=== PATIENT | male | born 1955 | race Caucasian/White ===

== ENCOUNTER 2016-12-24 11:15 | Emergency (ER) | payer BC ==
[2016-12-24 11:51] VITALS: BP 108/64; PULSE 83; TEMP 98.7; BMI 28.7
--- NOTE | 2016-12-24 12:23 | PDOC ---
Attending Attestation - Resident Resident Name: Tashi Wood - ED Attending Attestation I have performed the following: I have examined & evaluated the patient, The case was reviewed & discussed with the resident, I agree w/resident's findings & plan, Exceptions are as noted - HPI HPI: 12/24/16 12:10 61 yo M presents to the ER via EMS s/p fall while intoxicated He had 1/5 of vodka he can not tell me when He does not remember falling He awoke and had police all around him His wounds were dressed and he was brought to the ER - Physicial Exam PE: 12/24/16 12:23 Left eyebrow superficial laceration measuring approximately 2cm Left cheek abrasion No scalp laceration RRR Pt is awake and alert Speaking with clear sentences Ambulatory with ataxic gait - Medical Decision Making 12/24/16 12:[address] head, CT cervical spine Will give Boostrix Will continuously assess for sobriety
--- NOTE | 2016-12-24 12:41 | PDOC ---
History of Present Illness - General Chief Complaint: Alcohol intoxication Stated Complaint: FALL/INJURY Time Seen by Provider: 12/24/16 11:24 History Source: Patient Exam Limitations: Intoxication - History of Present Illness Initial Comments: 12/24/16 12:25 The patient is a 61M with a PMH of DM, hyperthyroidism, methadone addiction, HepC and cirrhosis who presents to the ED with acute intoxication and head wounds. He states that he was drinking tequila all day and states he drank a quart. He then passed out. He does not remember where he started or where he ended, just that he passed out, police surrounding him, and having his head wounds bandaged. ROS: + intoxication, abd distension, back pain, diarrhea. ROS - : pain in extremities, fever, chills, SOB, constipation, nausea, vomiting, abd pain. Meds: reba Todd Allergies: NDKA Social: Former smoker, quit 30 years ago. No recreational drugs, also quit 30 years ago. Drinks 1 fifth/day of vodka. Past History - Past Medical History Allergies/Adverse Reactions: Allergies Allergy/AdvReac Type Severity Reaction Status Date / Time No Known Allergies Allergy Verified 10/17/13 10:45 Home Medications: Ambulatory Orders Buprenorphine HCl/Naloxone HCl [Suboxone 4 mg-1 mg Sl Film] 50 mg PO DAILY 12/24 Diabetes: Yes Liver Disease: Yes (hep c) Psychiatric Problems: Yes (DEPERESSION) Thyroid Disease: Yes (HYPO) Other medical history: Cirrhosis of the Liver, Hepatitis-C - Psycho/Social/Smoking Cessation Hx Anxiety: Yes (deneis being suicidal or homicidal) Suicidal Ideation: No Smoking Status: No Smoking History: Former smoker Have you smoked in the past 12 months: No Number of Cigarettes Smoked Daily: 0 If you are a former smoker, when did you quit?: 23 YRS AGO Information on smoking cessation initiated: No Hx Alcohol Use: Yes Drug/Substance Use Hx: No (1 Quart of Vodka this morning) Substance Use Type: Prescribed Hx Substance Use Treatment: Yes Review of Systems - Review of Systems Able to Perform ROS?: Yes Is the patient limited Setswana proficient: No Constitutional: No: Chills, Fever Respiratory: No: Shortness of Breath Cardiac (ROS): No: Chest Pain ABD/GI: Yes: Diarrhea. No: Nausea, Vomiting, Other (Abd pain) *Physical Exam - Vital Signs Last Vital Signs Temp Pulse Resp BP Pulse Ox 98.7 F 83 20 108/64 95 12/24/16 11:38 12/24/16 11:38 12/24/16 11:38 12/24/16 11:38 12/24/16 11:38 - Physical Exam General Appearance: Yes: Intoxicated, Obese HEENT: positive: Other (1.5 cm abrasion on L eyebrow, 1 cm laceration on L cheek , dried blood on head) Respiratory/Chest: positive: Normal Breath Sounds Cardiovascular: positive: Regular Rhythm, Regular Rate, S1, S2 Gastrointestinal/Abdominal: positive: Soft, Distended. negative: Tenderness Integumentary: positive: Normal Color, Warm ED Treatment Course - LABORATORY CBC & Chemistry Diagram: 12/24/16 13:10 12/24/16 13:10 Medical Decision Making - Medical Decision Making 12/24/16 13:08 The patient is a 61M with a PMH of DM, hyperthyroidism, methadone addiction, HepC and cirrhosis who presents to the ED with acute intoxication and head wounds. Upon evaluation, his head wounds were cleaned but none required repair with sutures. Due to his history of alcoholic cirrhosis and hep C, we ordered a CBC, CMP, and coags to make sure there is no other underlying process going on. We also ordered imaging of his head, neck, abdomen, and pelvis. 12/24/16 16:58 Labs and radiology are all WNL. Pt was informed of this, was told he is ready for d/c, and will have his brother pick him up from the ED. *DC/Admit/Observation/Transfer Diagnosis at time of Disposition: Intoxication - Discharge Dispostion Disposition: HOME Condition at time of disposition: Stable Admit: No - Referrals Referrals: Osbaldo Caldwell MD [Primary Care Provider] - - Attestations Physician Attestion: 12/24/16 14:02 I, Dr. Tashi Wood, attest that this document has been prepared under my direction and personally reviewed by me in its entirety. I further attest, that it accurately reflects all work, treatment, procedures and medical decision -making performed by me. Addendum entered and electronically signed by Tashi Wood, MIN 12/24/16 17:43 : Progress Note - Progress Note Progress Note: Patient is ambulating with steady gait. He has gotten up to leave on multiple occasions. 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 Speech is clear and he knows where he lives for a cab to take him. Will be discharged.
[2016-12-24] MEDS ORDERED: BACITRACIN 0.9 GM PACKET ONE (12:43)
[2016-12-24 13:19] LABS: EOSINOPHIL 2.5 % (0-4.5); MCH 33.7 pg (25.7-33.7); MCHC 34.4 g/dl (32.0-35.9); MEAN PLT VOLUME 7.8 fl (7.5-11.1); NEUTROPHILS 63.8 % (42.8-82.8); PLATELET COUNT 70 K/MM3 (134-434); RDW 13.1 % (11.9-15.9)
[2016-12-24 13:48] LABS: INR 1.1 (0.82-1.09); PROTHROMBIN TIME (PATIENT) 12.1 SEC (9.98-11.88)
[2016-12-24 13:53] LABS: ALBUMIN 3.3 g/dl (3.4-5.0); ALK PHOS 80 U/L (45-117); ANION GAP 11 (8-16); BILIRUBIN,TOTAL 1.2 mg/dL (0.2-1.0); CALCIUM 8.3 mg/dL (8.5-10.1); CO2 24 mmol/L (21-32); GLUCOSE,RANDOM 90 mg/dL (74-106); SGOT/AST 59 U/L (15-37); SGPT/ALT 50 U/L (12-78); TOT PROT 6.7 g/dl (6.4-8.2)
== END 2016-12-24 17:08 | disposition home or self-care (01) ==
LOC: JER 11:15
DX: F10.120 Alcohol abuse with intoxication, uncomplicated (principal); S01.112A Laceration without foreign body of left eyelid and periocular area, initial encounter; S01.412A Laceration without foreign body of left cheek and temporomandibular area, initial encounter; W19.XXXA Unspecified fall, initial encounter; Y93.89 Activity, other specified; Y92.89 Other specified places as the place of occurrence of the external cause; E11.9 Type 2 diabetes mellitus without complications; K70.30 Alcoholic cirrhosis of liver without ascites; B19.20 Unspecified viral hepatitis C without hepatic coma; F11.20 Opioid dependence, uncomplicated
CPT/HCPCS: 36415; 70450-TC; 70486-TC; 72125-TC; 74177-TC; 80053; 85025; 85610; 99283-25

== ENCOUNTER 2017-02-15 09:13 | Day surgery (SDC) | payer BC ==
[2017-01-17 10:01] VITALS: BMI 39.9
[2017-02-15] MEDS ORDERED: PROPOFOL 20 ML ONE ×3 (10:38)
[2017-02-15 11:17] VITALS: TEMP 97.6
[2017-02-15 15:14] VITALS: BP 128/72; PULSE 63
--- NOTE | 2017-02-18 10:56 | PATH ---
Surgical Pathology Report Patient Name: PIA CORDOBA [facility]. Rec. #: [id number] /Age/Gender: 1955 (Age: 61) / M Account: [id number] Location: [facility]-ENDOSCOPY Taken: 02/15/2017 Received: 02/15/2017 Reported: 02/18/2017 Physicians: Osbaldo Caldwell M.D. Specimen(s) Received BX STOMACH Clinical History Hepatitis C, rule out varices Gastritis, no varices, erosive duodenitis, duodenal ulcer Final Diagnosis STOMACH, BIOPSY: GASTRIC MUCOSA WITH NO PATHOLOGIC CHANGES. IMMUNOSTAIN FOR H. PYLORI IS NEGATIVE. Electronically Signed German Haji M.D. Gross Description Received in formalin, labeled "biopsy stomach" are 2 ramirez, irregular portions of soft tissue measuring 0.2-0.5 cm. in greatest dimension. The specimens are submitted in toto in one cassette. [facility]/02/15/2017 [facility]/02/15/2017
== END 2017-02-15 12:05 | disposition home or self-care (01) ==
LOC: JASU-ENDO 09:13
PROVIDERS: ATTEND Internal Medicine Gastroenterology
PROC: 0DB98ZX Excision of Duodenum, Via Natural or Artificial Opening Endoscopic, Diagnostic (ICD-10-PCS; principal; 2017-02-15 10:30)
DX: B19.20 Unspecified viral hepatitis C without hepatic coma (principal); K26.9 Duodenal ulcer, unspecified as acute or chronic, without hemorrhage or perforation
CPT/HCPCS: 88305-TC; 88342-TC

== ENCOUNTER 2018-05-05 15:31 | Inpatient (IN) | payer BC ==
--- NOTE | 2018-05-05 15:49 | PDOC ---
Rapid Medical Evaluation Chief Complaint: Alcohol intoxication Time Seen by Provider: 05/05/18 15:45 Medical Evaluation: Allergies Allergy/AdvReac Type Severity Reaction Status Date / Time No Known Allergies Allergy Verified 10/17/13 10:45 05/05/18 15:46 I have performed a brief in-person evaluation of this patient. The patient presents with a chief complaint of: +intox /etoh, fell at home and hurt knees/ back - wishes to stop drinking Pertinent physical exam findings: + intox/ Hep C - amb walks with limp/ back I have ordered the following: nothing. The patient will proceed to the ED for further evaluation.
[2018-05-05 15:50] VITALS: TEMP 99.4; BMI 37.5
[2018-05-05 18:15] LABS: HEMATOCRIT 46.7 % (35.4-49); HEMOGLOBIN 15.8 GM/dL (11.7-16.9); MCH 31.9 pg (25.7-33.7); MCHC 33.9 g/dl (32.0-35.9); MEAN PLT VOLUME 8.2 fl (7.5-11.1); PLATELET COUNT 112 K/MM3 (134-434); RBC 4.96 M/mm3 (4.00-5.60); RDW 12.8 % (11.9-15.9); WHITE BLOOD COUNT 8.7 K/mm3 (4.0-10.0)
[2018-05-05 18:48] LABS: INR 1.21 (0.83-1.09); PROTHROMBIN TIME (PATIENT) 14.3 SEC (9.7-13.0)
--- NOTE | 2018-05-05 19:09 | PDOC ---
History of Present Illness - General Chief Complaint: Alcohol intoxication Stated Complaint: WEAKNESS Time Seen by Provider: 05/05/18 15:45 History Source: Patient Exam Limitations: No Limitations - History of Present Illness Initial Comments: 05/05/18 19:30 Mr. Cifuentes is a 63 yo M with a hx of hypothyroidism, IV drug abuse (6 yrs ago; heroin), and alcohol abuse who presents to the emergency department with intoxication and multiple falls today. Per the patient, he drank 1/5th of whiskey today with last drink at 12 pm. This is what he drank over a 24 hour period. He states he fell multiple times today that included landing on his head , but denies loss of consciousness. Currently, he is having a band like headache on his right side with lower back pain associated from the fall. He states he is on eliquis for a hx of PE/DVT in the past (last episode 8 months ago). Denies the following: visual changes, dizziness, lightheadedness, chest pain, SOB, abdominal pain, dysuria, hematuria, nausea, vomiting, ataxia, weakness, dysuria, hematuria, melena, hematochezia, and leg pain/swelling. Pmhx: Refer to above Shx: skin graft of right axilla childhood Meds: eliquis 5 mG, levothyroxine (recently taken off) Allergies: NKDA Social: Denies tobacco and current substance abuse. ETOH is 1/5th vodka/whiskey per week. Past History - Past Medical History Allergies/Adverse Reactions: Allergies Allergy/AdvReac Type Severity Reaction Status Date / Time No Known Allergies Allergy Verified 05/05/18 15:50 Home Medications: Ambulatory Orders Cholecalciferol (Vitamin D3) [Vitamin D3] 2,000 unit PO DAILY 01/17/17 Ledipasvir/Sofosbuvir [Harvoni 90-400 mg Tablet] 1 each PO DAILY 01/17/17 Levothyroxine [Synthroid -] 50 mcg PO DAILY 01/17/17 Anemia: No Asthma: No Cancer: No Cardiac Disorders: No CVA: No COPD: No CHF: No Dementia: No Diabetes: Yes GI Disorders: Yes (COLON POLYPS) Disorders: No HTN: Yes (PORTAL HYPERTENSION) Hypercholesterolemia: No Liver Disease: Yes (CIRRHOISIS DUE TO HEPATITS C) Psychiatric Problems: Yes (DEPERESSION) Seizures: No Thyroid Disease: Yes (HYPO) - Surgical History Abdominal Surgery: No Appendectomy: No Cardiac Surgery: No Cholecystectomy: No Lung Surgery: No Neurologic Surgery: No Orthopedic Surgery: No - Suicide/Smoking/Psychosocial Hx Smoking Status: No Smoking History: Former smoker Have you smoked in the past 12 months: No Number of Cigarettes Smoked Daily: 0 If you are a former smoker, when did you quit?: 1994 Information on smoking cessation initiated: No Hx Alcohol Use: Yes Drug/Substance Use Hx: No Substance Use Type: Alcohol, Prescribed, Tranquilizers Hx Substance Use Treatment: Yes Review of Systems - Review of Systems Able to Perform ROS?: Yes Is the patient limited Italian proficient: No Constitutional: No: Chills, Diaphoresis, Fever HEENTM: No: Recent change in vision, Nose Pain, Throat Pain, Mouth Pain Respiratory: No: Shortness of Breath Cardiac (ROS): No: Chest Pain, Irregular Heart Rate, Lightheadedness, Palpitations, Syncope, Chest Tightness ABD/GI: Yes: Diarrhea, Nausea, Abdominal cramping. No: Constipated, Poor Appetite, Poor Fluid Intake, Rectal Bleeding, Vomiting, Indigestion, Tarry Stools : No: Burning, Dysuria, Hematuria Musculoskeletal: Yes: Back Pain. No: Neck Pain Integumentary: No: Rash Neurological: Yes: Headache. No: Numbness, Paresthesia, Weakness, Dizziness Psychiatric: Yes: Anxiety Endocrine: No: Unexplained Weight Gain Hematologic/Lymphatic: No: Anemia *Physical Exam - Vital Signs Last Vital Signs Temp Pulse Resp BP Pulse Ox 99.4 F 88 18 132/63 96 05/05/18 15:43 05/05/18 15:43 05/05/18 15:43 05/05/18 15:43 05/05/18 15:43 - Physical Exam General Appearance: Yes: Nourished, Appropriately Dressed, Alcohol on Breath, Obese HEENT: positive: EOMI, LESTER Neck: positive: Trachea midline, Lymphadenopathy (R). negative: Tender, Lymphadenopathy (L) Respiratory/Chest: positive: Lungs Clear, Normal Breath Sounds. negative: Chest Tender, Respiratory Distress, Accessory Muscle Use, Rales, Rhonchi, Stridor, Wheezing Cardiovascular: positive: S1, S2, Tachycardia, Irregularly Irregular. negative : Systolic Murmur Gastrointestinal/Abdominal: positive: Normal Bowel Sounds. negative: Tender Lymphatic: negative: Adenopathy Musculoskeletal: positive: Normal Inspection. negative: CVA Tenderness Extremity: positive: Normal Capillary Refill, Normal Inspection, Normal Range of Motion. negative: Tender Integumentary: positive: Normal Color, Dry, Warm Neurologic: positive: crime scene specialist II-XII NML intact, Fully Oriented, Alert, Normal Mood/ Affect, Normal Response, Motor Strength 5/5 Heart Score/ECG Review - ECG Intrepretation Comment:: 05/06/18 00:22 ventricular rate is 139 bpm, QRS duration is 80 ms, QTc is 392 ms. Atrial fibrillation with RVR without ST elevations and depressions. ED Treatment Course - LABORATORY CBC & Chemistry Diagram: 05/05/18 18:11 05/05/18 18:48 - ADDITIONAL ORDERS Additional order review: Laboratory Results 05/05/18 18:11 PT with INR 14.30 H INR 1.21 H 05/05/18 18:11 RBC 4.96 MCV 94.0 MCHC 33.9 RDW 12.8 MPV 8.2 - RADIOLOGY Radiology Studies Ordered: Category Date Time Status CERVICAL SPINE CT W/O CONTR [CT] Stat CT Scan 05/05/18 18:36 Ordered SPINE-LUMBAR SACRAL [RAD] Stat Radiology 05/05/18 18:36 Ordered SPINE-THORACIC [RAD] Stat Radiology 05/05/18 18:36 Ordered Medical Decision Making - Medical Decision Making Mr. Cifuentes is a 63 yo M with a hx of hypothyroidism, IV drug abuse (6 yrs ago; heroin), and alcohol abuse who presents to the emergency department with intoxication and multiple falls today. Initial vitals: Initial Vital Signs Temp Pulse Resp BP Pulse Ox 99.4 F 88 18 132/63 96 05/05/18 15:43 05/05/18 15:43 05/05/18 15:43 05/05/18 15:43 05/05/18 15:43 Work up: ddx of falls include syncope possibly secondary to cardiogenic causes vs infectious etiology vs metabolic disturbance vs neurogenic causes. intoxication likely secondary to alcohol given patients hx and physical exam. intoxication a possible cause to the falls. irregular rhythm on physical exam noted and patient denies hx of irregular rhythm new onset of afib? EKG was done and showed atrial fibrillation with rvr. patient remained asymptomatic resting comfortably on stretcher. Laboratory Tests 1105/05/18 05/05/18 18:11 18:11 18:48 WBC 8.7 RBC 4.96 Hgb 15.8 Hct 46.7 MCV 94.0 MCH 31.9 MCHC 33.9 RDW 12.8 Plt Count 112 L D MPV 8.2 PT with INR 14.30 H INR 1.21 H Sodium 140 Potassium 4.4 Chloride 108 H Carbon Dioxide 22 Anion Gap 10 BUN 26 H Creatinine 1.7 H Creat Clearance w eGFR 41.18 Random Glucose 104 Calcium 8.6 Phosphorus 2.3 L Magnesium 2.1 Total Bilirubin 3.6 H Direct Bilirubin 0.4 H AST 60 H ALT 24 Alkaline Phosphatase 98 Creatine Kinase 1649 H Creatine Kinase Index 0.8 CK-MB (CK-2) 13.3 H Troponin I 0.07 H Total Protein 7.7 Albumin 4.2 Triglycerides 110 Cholesterol 120 Total LDL Cholesterol 69 HDL Cholesterol 58 TSH 6.77 H Free T4 1.08 Alcohol, Quantitative < 3.0 troponin was elevated to 0.07 likely secondary to demand ischemia and setting of likely acute LACEY possibly secondary to dehydration. Patient was given 1 L of NS for hydration and banana bag. head CT was negative for acute intracranial pathologies and no acute fractures or dislocations noted on cervical spine CT. No acute fractures or dislocations noted on thoracic and lumbar/sacral xrays. No acute pathologies noted on cxr. CK was elevated at 1649 and bilirubin elevated at 3.6 H with direct at 0.4 (possibly secondary to falls given rise in CK). ETOH was less than 3.0 10 mg of cardizem given at 8:30 pm. Corrected rate from 150s to 110s. 10 mg of cardizem and 30 mg PO cardizem corrected rate from 110-120s to 90s- 100s. Patient remained asymptomatic prior and post conversion. Spoke to Dr. Herrera who stated to continue with the cardizem for cardioversion and to start home dose of eliquis (5 mg). Pt reassessed: no tremors or signs of withdrawal. no need for librium/ativan at this time. Pt was admitted for cardiac work up. Dispo: Admit *DC/Admit/Observation/Transfer Diagnosis at time of Disposition: Atrial fibrillation with RVR - Discharge Dispostion Disposition: AGAINST MEDICAL ADVICE Condition at time of disposition: Stable - Referrals - Patient Instructions - Post Discharge Activity
[2018-05-05 19:41] LABS: ALBUMIN 4.2 g/dl (3.4-5.0); ALK PHOS 98 U/L (45-117); ANION GAP 10 MMOL/L (8-16); BILIRUBIN,TOTAL 3.6 mg/dL (0.2-1); BLOOD UREA NITROGEN 26 mg/dL (7-18); CALCIUM 8.6 mg/dL (8.5-10.1); CHLORIDE 108 mmol/L (98-107); CO2 22 mmol/L (21-32); CREATININE 1.7 mg/dL (0.55-1.3); GLUCOSE,RANDOM 104 mg/dL (74-106); MAGNESIUM 2.1 mg/dL (1.8-2.4); SGOT/AST 60 U/L (15-37); SGPT/ALT 24 U/L (13-61); SODIUM 140 mmol/L (136-145); TOT PROT 7.7 g/dl (6.4-8.2)
[2018-05-05 19:45] LABS: POTASSIUM 4.4 mmol/L (3.5-5.1)
[2018-05-05] MEDS ORDERED: dilTIAZem HCL 50 MG/10 ML - 10 ML VIAL IVPUSH ONE ×2 (20:17→21:42)
[2018-05-05] MEDS ORDERED: ASPIRIN 81 MG CHEWABLE TABLETS PO ONE (20:17)
[2018-05-05] MEDS ORDERED: SODIUM CHLORIDE 1,000 ML IV STA (20:17)
[2018-05-05] MEDS ORDERED: FOLIC ACID INJECTION - 1 MG, THIAMINE HCL 100 MG, MULTIVIT INJECTION ADULT 10 ML in SOD... IVPB ONE (20:17)
[2018-05-05] MEDS ORDERED: ASPIRIN 81 MG CHEWABLE TABLETS ONE (20:25)
[2018-05-05] MEDS ORDERED: dilTIAZem HCL 50 MG/10 ML - 10 ML VIAL ONE (20:26)
[2018-05-05] MEDS ORDERED: chlordiazePOXIDE HCL 25 MG CAPSULE PO ONE (21:31)
[2018-05-05] MEDS ORDERED: dilTIAZem HCL 30 MG TABLET (FP) PO ONE (21:42)
[2018-05-05] MEDS ORDERED: APIXABAN 5 MG TABLET PO ONE ×2 (21:45→22:52)
[2018-05-05] MEDS ORDERED: dilTIAZem HCL 30 MG TABLET (FP) ONE (22:39)
--- NOTE | 2018-05-05 22:44 | PN ---
Teaching Attending Note Name of Resident: Parisa Mitchell ATTENDING PHYSICIAN STATEMENT I saw and evaluated the patient. I reviewed the resident's note and discussed the case with the resident. I agree with the resident's findings and plan as documented. SUBJECTIVE: Seen and examined; for further historical information please see resident note. In summation, patient is a poor historian who presents with fall from home while intoxicated; unclear if this was a mechanical fall in nature vs. syncopal (does relay a history of tripping, but not 100% certain that the fall is mechanical and this should be revisited when he is more sober). He has a PMH of hypothyroidism, cirrhosis 2/2 hepatitis C (completed harvoni ~3 years ago per patient, positive Hep A Ab and Hep B core Ab several years ago), documented DM, chronic thrombocytopenia 2/2 cirrhosis, alcohol abuse. He feels well overall without any worsening chronic changes; denies CP, SOB, palpitations. He was brought in to [facility] in aproximately August of this year for a fall/SOB and was found to have PE/DVT; he tells me that this presentation is different. Given 10 IV cardizem x2 in the ER then given 30 PO now HR 100-110. Tells me he has b 10 sys ROS done and negative aside from HPI PMH and PSH reviewed; as per chart FH asked and noncontributory Social denies any QD drinking, stating that he occasionally will binge several times per month and alludes to fixing any drinking problems 'months' ago. He hasn't smoked in over a decade. He denies current drug use. OBJECTIVE: VSS, labs, imaging, and old intraoperative reports reviewed. NAD, resting in bed, obese and discheveled Irregularly irregular, afib on monitor, HR judged to be at 100-110 to palpation. No roberta mgr Habitus limits lung exam but mostly clear with sym exp NC AT EOMI PERRLA Trachea midline with no LN, no JVD Dependent to 1+ LE edema NT ND +BS, but I am told he was slightly tender to resident exam Abd US pending CXR reviewed EKG shows Afib with RVR, no ST-T changes acutely concerning Labs with thrombocytopenia, elevated bilirubin, slightly elevated troponin, TSH elevated but much less so than 2013 Old EGD reviewed; no varices but erosive duodenitis with duodenal ulcer Old CTs reviewed; splenomegaly, suspect varices, cirrhosis ASSESSMENT AND PLAN: Mr. Cifuentes is a patient presenting with a fall found to be in Afib with RVR, which is a new diagnosis for him. He is also found to have an LACEY as well as acute on chronic hyperbilirubinemia. He will be admitted to telemetry on the medicine service. 1) Atrial Fibrillation, acute -Monitor on telemetry, monitor lytes. CHADSVASC2 is 2 but he is elevated fall risk with HASBLED elevated as well; he wishes to stop drinking, though, which could mitigate fall risk. Either way he needs to have a discussion of benefits vs. risk of AC prior to DC -Was on home eliquis for DVT/PE; will continue with acknowledgement to above -Will place on 30 PO Q6H; titrate up if needed. Check echo. Consult cardiology as new onset. -Causes of this could include anatomical changes, EtOH, etc. 2) Fall -Syncope v. mechanical fall; difficult to make that determination on history alone in this patient. -Afib, especially with EtOH, could have contributed. Treat #1 and monitor on telemetry -CT head negative; consider further testing if doesn't resolve with treating intox/afib. 3) Cirrhosis (MELD=18) -Due to HCV (s/p Harvoni 3 years ago) with intermittent binge drinking giving likely EtOH component. Splenomeg+ on prior imaging, EGD without varices. -Bili is acutely elevated (now in 3 range); check RUQ u/s and fractionate the bili -Monitor; followup with GI and optimize PO home meds prior to DC. 4) Troponemia -Likely rate related in the setting of LACEY -Followup with CV recommendations. 5) LACEY -Likely prerenal given the history -Empirically hydrating; if worsens obtain FeNa and consider renal consultation. Monitor BMP and UOP 6) Elevated CK -Given the fall history go ahead and check that it is trending down 7) Hypothyroidism hx with elevated TSH -Has been noncompliant with PO meds due to insurance reasons -Restart home meds; check a FT4. Monitor. No s/s myxedema coma. 8) EtOH abuse -[facility] protocol, thiamine, folate. States he doens't abuse alcohol daily but rather is an occasional binger. States he wants to stop drinking. 9) Thrombocytopenia -Chronic; no s/s acute bleed and states has been compliant with home meds -Continue eliquis and monitor closely -Due to cirrhosis 10) Documented DM -No hyperglycemia seen in ER; checking A1c. If needed give SSI when inpatient. 11) History of PE -Obtain old records from [facility] -Is on eliquis 12) Obesity (BMI 37) -Purchase Analyst when clinically appropriate DVT px on eliquis No GI px needed FENA -LR@100 -Monitor/replace PRN -Regular diet -As tolerated Full Code
[2018-05-05] MEDS ORDERED: FOLIC ACID 1 MG TABLET (FP) PO ONE (22:48)
[2018-05-05 22:59] VITALS: BP 118/68; PULSE 98
[2018-05-05] MEDS ORDERED: LACTATED RINGERS SOLUTION 1,000 ML/1,000 ML INFUS.BAG IV SCH (23:00)
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
[2018-05-06 01:17] LABS: BILIRUBIN,DIRECT 0.4 mg/dL (0.0-0.2); CHOLESTEROL 120 mg/dL (50-200); HDL CHOLESTEROL 58 mg/dL (40-60); PHOSPHOROUS 2.3 mg/dL (2.5-4.9); TRIGLYCERIDES 110 mg/dL (0-150)
--- NOTE | 2018-05-06 02:45 | DS ---
Physical Exam: SUBJECTIVE: Called by nurse that patient wanted to AMA. OBJECTIVE: Vital Signs Period Temp Pulse Resp BP Sys/Mccray Pulse Ox Last 24 Hr 99.4 F 88-135 18-18 118-132/63-74 96-100 PHYSICAL EXAM GENERAL: Awake, alert, HEAD: Normal with no signs of trauma. EYES: Pupils equal, round and reactive to light, extraocular movements intact EARS, NOSE, THROAT: Moist mucous membranes. NECK: Normal range of motion LUNGS: Breath sounds equal, clear to auscultation bilaterally. No wheezes, and no crackles. No accessory muscle use. HEART: irregularly irregular, normal S1 and S2 without murmur, rub or gallop. ABDOMEN: distended, tender to deep palpation at RUQ, gynecomastia, striae present, mild ascites present MUSCULOSKELETAL: Normal range of motion at all joints. No bony deformities or tenderness. No CVA tenderness. UPPER EXTREMITIES: 5/5 UE strength No peripheral edema. LOWER EXTREMITIES: 2+ bilateral non pitting edema, 5/5 strength NEUROLOGICAL: Cranial nerves II-XII intact. Normal speech. PSYCHIATRIC: Cooperative. Good eye contact. Appropriate mood and affect. SKIN: bilateral lower extremity healed stasis ulcers, flaking of skin LABS Laboratory Results - last 24 hr 05/05/18 05/05/18 05/05/18 18:11 18:11 18:48 WBC 8.7 RBC 4.96 Hgb 15.8 Hct 46.7 MCV 94.0 MCH 31.9 MCHC 33.9 RDW 12.8 Plt Count 112 L D MPV 8.2 PT with INR 14.30 H INR 1.21 H Sodium 140 Potassium 4.4 Chloride 108 H Carbon Dioxide 22 Anion Gap 10 BUN 26 H Creatinine 1.7 H Creat Clearance w eGFR 41.18 Random Glucose 104 Calcium 8.6 Phosphorus 2.3 L Magnesium 2.1 Total Bilirubin 3.6 H Direct Bilirubin 0.4 H AST 60 H ALT 24 Alkaline Phosphatase 98 Creatine Kinase 1649 H Creatine Kinase Index 0.8 CK-MB (CK-2) 13.3 H Troponin I 0.07 H Total Protein 7.7 Albumin 4.2 Triglycerides 110 Cholesterol 120 Total LDL Cholesterol 69 HDL Cholesterol 58 TSH 6.77 H Free T4 1.08 Alcohol, Quantitative < 3.0 HOSPITAL COURSE: Date of Admission:05/05/18 Called by nurse around 2 am that patient wanted to AMA. Patient presented to the ED for fall 07/26 to alcohol intoxication. Last stated drink was noon, medicine team did not see patient until 8 pm. Patient was being treated for afib with RVR. Alcohol level was not drawn until almost 7 pm. By that time his alcohol level was < 3. Discussed risks and benefits with patient. He was able to articulate them back and still expressed wish to leave. Patient was no longer intoxicated and did not state any suicidal ideation. Patient called a cab and left AMA. Date of Discharge: 05/06/18 Minutes to complete discharge: 35 Discharge Summary Reason For Visit: INTOXICATION Current Active Problems Atrial fibrillation with RVR (Acute) Condition: Good - Instructions Referrals: Bacilio Rodriguez MD [Primary Care Provider] - Disposition: AGAINST MEDICAL ADVICE - Home Medications Comprehensive Discharge Medication List: Ambulatory Orders Cholecalciferol (Vitamin D3) [Vitamin D3] 2,000 unit PO DAILY 01/17/17 Ledipasvir/Sofosbuvir [Harvoni 90-400 mg Tablet] 1 each PO DAILY 01/17/17 Levothyroxine [Synthroid -] 50 mcg PO DAILY 01/17/17 This patient is new to me today: Yes Date on this admission: 05/06/18 Emergency Visit: Yes ED Registration Date: 05/05/18 Care time: The patient presented to the Emergency Department on the above date and was hospitalized for further evaluation of their emergent condition. Critical Care patient: No - Discharge Referral Referred to [facility] Med P.C.: No
[2018-05-06] MEDS ORDERED: dilTIAZem HCL 30 MG TABLET (FP) PO SCH (06:00)
[2018-05-06] MEDS ORDERED: LEVOTHYROXINE NA 50 MCG TABLET (FP) PO SCH (07:00)
[2018-05-06] MEDS ORDERED: THIAMINE HCL 100 MG TABLET (FP) PO SCH (10:00)
--- NOTE | 2018-05-06 16:30 | EKG ---
Test Reason : Blood Pressure : / mmHG Vent. Rate : 139 BPM Atrial Rate : 127 BPM P-R Int : 000 ms QRS Dur : 080 ms QT Int : 258 ms P-R-T Axes : 000 -02 052 degrees QTc Int : 392 ms ATRIAL FIBRILLATION WITH RAPID VENTRICULAR RESPONSE ABNORMAL ECG WHEN COMPARED WITH ECG OF 17-OCT-2013 11:52, ATRIAL FIBRILLATION HAS REPLACED SINUS RHYTHM VENT. RATE HAS INCREASED BY [address] NO LONGER ELEVATED IN INFERIOR LEADS Confirmed by MD Elieser, Zeferino ([id number]) on 05/06/2018 4:30:22 PM Referred By: Confirmed By:Zeferino Mon MD
--- NOTE | 2018-05-07 22:09 | PDOC ---
Attending Attestation - Resident Resident Name: Duc Franco - ED Attending Attestation I have performed the following: I have examined & evaluated the patient, The case was reviewed & discussed with the resident, I agree w/resident's findings & plan, Exceptions are as noted - HPI HPI: 05/05/18 22:05 63 yo male with h/o frequent alcohol use, drug use, prior pe and dvt, here today after having had mutliple falls . pt states unsure why hes fallen multiple times today. now c/o of a headache. states he does not drink daily, but did drink whiskey today. also c/o back pain. no other complaints. - Physicial Exam PE: 05/05/18 22:07 awake alert head atraumatic. lungs clear heart irreg tachycardia. no mrg abd soft distended nt. ext wwp. bilat lower ext brawning edema, dry skin. nuero alert oriented x 3. moves all four ext. - Medical Decision Making 05/05/18 22:07 63 yo male h/o etoh abuse, pe prior dvt here with mutlple falls, headache and back pain. on presentation intial ekg with afib with rvr, per pt is new. heart rate 121. plan labs ct head, xray thoracic spine. reynaldo admit for new onset afib with rvfr. r/o traumatic injuris.
== END 2018-05-06 02:12 | disposition left against medical advice (07) | DRG 309 ==
LOC: JER 15:31 → JERBED 21:30 → UNDOADMIN 23:30
PROVIDERS: ADMIT Internal Medicine; ATTEND Internal Medicine
DX: I48.91 Unspecified atrial fibrillation (principal); K76.6 Portal hypertension; N17.9 Acute kidney failure, unspecified; I24.8 Other forms of acute ischemic heart disease; F10.129 Alcohol abuse with intoxication, unspecified; E03.9 Hypothyroidism, unspecified; K63.5 Polyp of colon; K74.69 Other cirrhosis of liver; B19.20 Unspecified viral hepatitis C without hepatic coma; F32.9 Major depressive disorder, single episode, unspecified; E86.0 Dehydration; D69.6 Thrombocytopenia, unspecified; E66.9 Obesity, unspecified; Z68.37 Body mass index [BMI] 37.0-37.9, adult; E11.9 Type 2 diabetes mellitus without complications; R16.1 Splenomegaly, not elsewhere classified; W18.30XA Fall on same level, unspecified, initial encounter; I42.0 Dilated cardiomyopathy; Z86.711 Personal history of pulmonary embolism; Z87.891 Personal history of nicotine dependence
CPT/HCPCS: 36415; 70450-TC; 71045-TC-FY; 72070-TC-FY; 72100-TC-FY; 72125-TC; 80053; 80061; 80307; 82248; 82550; 82553; 83036; 83721; 83735; 84100; 84439; 84443; 84484; 85027; 85610; 93005; 93010; 99285-25; J7030